=== PATIENT | female | born 1970 | race Caucasian/White ===

== ENCOUNTER 2019-07-24 10:59 | Emergency (ER) | payer OTHER ==
[~2019-07-24] VITALS: Ht 165.1 cm; Wt 70.3 kg
[2019-07-24 11:00] VITALS: BP 114/82
[2019-07-24 11:21] VITALS: BP 112/80
== END 2019-07-24 11:21 ==
LOC: MED 10:59
DX: M79.606 Pain in leg, unspecified (principal); M79.10 Myalgia, unspecified site; R20.0 Anesthesia of skin
CPT/HCPCS: 99283

== ENCOUNTER 2019-10-14 19:26 | Emergency (ER) | payer OTHER, MEDICAID ==
[~2019-10-14] VITALS: Ht 162.6 cm; Wt 65.8 kg
[2019-10-14 19:45] VITALS: BP 113/71
--- NOTE | 2019-10-14 19:48 | NUR ---
TO LOBBY A/W BED AMBULATORY
--- NOTE | 2019-10-14 22:02 | NUR ---
PT AMBULATED TO BED 10
--- NOTE | 2019-10-14 22:18 | NUR ---
DR. DALLIN PIERCE AT BED.
--- NOTE | 2019-10-14 22:30 | NUR ---
49 YO F BIB SELF PRESENTS TO ED C/O 07/23 CHEST CONGESTION, NASAL CONGESTION AND HACKING COUGH WITH BRIGHT GREEN PHLEGHM X 4 DAYS. PT REPORTS SOB DUE TO UNABLE TO BREATHE THROUGH NOSE. NASAL CONGESTION HEARD. LUNGS CTA. SPO2 98% ON RA. SKIN NORMAL FOR ETHNICITY, WARM, DRY. BREATHING EVEN, SLIGHTLY LABORED. PMH-- DENIES RX-- DENIES
[2019-10-14] MEDS ORDERED: OSELTAMIVIR PHOSPHATE 75 MG CAP PO ONE (23:05)
[2019-10-14 23:08] LABS: BASOPHILS % (AUTO) 0.4 % (0.0-2.0); EOSINOPHILS % (AUTO) 0.3 % (0.0-4.0); HEMATOCRIT 36.1 % (36-48); HEMOGLOBIN 11.3 g/dL (12.0-16.0); LYMPHOCYTES # (AUTO) 1.6 K/uL (2.5-16.5); LYMPHOCYTES % (AUTO) 22.9 % (20.5-51.1); MEAN CORPUSCULAR HEMOGLOBIN 25 pg (27-31); MEAN CORPUSCULAR HGB CONC 31 g/dL (33-37); MEAN CORPUSCULAR VOLUME 80.9 fL (80-94); MONOCYTES % (AUTO) 14.3 % (1.7-9.3); NEUTROPHILS # (AUTO) 4.3 K/uL (1.8-7.7); NEUTROPHILS % (AUTO) 62.1 % (42.2-75.2); PLATELET COUNT (AUTO) 271 K/uL (140-450); RED BLOOD CELL COUNT(AUTO) 4.46 MIL/uL (4.20-5.40); RED CELL DISTRIBUTION WIDTH 16.5 % (11.6-13.7); WHITE BLOOD COUNT (AUTO) 6.9 K/uL (4.8-10.8)
[2019-10-14 23:18] VITALS: BP 122/76
--- NOTE | 2019-10-14 23:18 | NUR ---
Patient discharged with v/s stable. Written and verbal after care instructions given and explained. Patient alert, oriented and verbalized understanding of instructions. Ambulatory with steady gait. All questions addressed prior to discharge. ID band removed. Patient advised to follow up with PMD. Rx of Tamiflu given. Patient educated on indication of medication including possible reaction and side effects. Opportunity to ask questions provided and answered.
[2019-10-14 23:27] LABS: ALBUMIN 3.2 g/dL (3.4-5.0); ANION GAP 13.9 (8-16); CARBON DIOXIDE 27.7 mmol/L (21-32); CREATININE 0.6 mg/dL (0.6-1.3); POTASSIUM 3.6 mmol/L (3.5-5.1); TOTAL BILIRUBIN 0.2 mg/dL (0.0-1.0)
== END 2019-10-14 23:18 | disposition home or self-care (01) ==
LOC: MED 19:26
DX: J10.1 Influenza due to other identified influenza virus with other respiratory manifestations (principal)
CPT/HCPCS: 36415; 71046; 80053; 85025; 87804; 99284

== ENCOUNTER 2019-11-08 02:03 | Emergency (ER) | payer OTHER, MEDICAID ==
[~2019-11-08] VITALS: Ht 162.6 cm; Wt 67.1 kg
[2019-11-08 02:13] VITALS: BP 141/85
--- NOTE | 2019-11-08 05:03 | NUR ---
PT AMBULATED TO BED 03 WITH STEADY GAIT.
--- NOTE | 2019-11-08 05:18 | NUR ---
Dr. Clay examining patient.
[2019-11-08 05:54] VITALS: BP 141/85
--- NOTE | 2019-11-08 05:54 | NUR ---
PT SEEN AND ASSESSED BY DR GUAMAN. PT DISCHARGED WITH PAPERWORK. EDUCATED PT REGARDING MEDICATIONS AND D/C INSTRUCTIONS. PT VERBALIZED UNDERSTANDING. TOLD PT TO FOLLOW UP WITH PCP AND WHEN TO RETURN TO ED. PT AT STABLE CONDITION. ALL QUESTIONS ANSWERED.
[2019-11-08 06:50] LABS: APPEARANCE,URINE HAZY (CLEAR); BILIRUBIN,URINE NEGATIVE (NEGATIVE); BLOOD, URINE TRACE-I (NEGATIVE); COLOR,URINE YELLOW (YELLOW); LEUKOCYTE ESTERASE ,URINE 3+ (NEGATIVE); NITRITE, URINE POSITIVE (NEGATIVE); UGLUCOSE NEGATIVE (NEGATIVE)
[2019-11-08 06:59] LABS: WBC,URINE 20-60 /HPF (0-5)
[2019-11-08 07:01] LABS: RBC,URINE 11-20 (MOD) /HPF (0-5)
== END 2019-11-08 05:54 | disposition home or self-care (01) ==
LOC: MED 02:03
DX: N39.0 Urinary tract infection, site not specified (principal)
CPT/HCPCS: 81001; 81025; 87086; 87186; 99283

== ENCOUNTER 2019-11-20 01:32 | Emergency (ER) | payer OTHER, MEDICAID ==
[~2019-11-20] VITALS: Ht 162.6 cm; Wt 65.8 kg
[2019-11-20 01:35] VITALS: BP 119/84
[2019-11-20 03:20] VITALS: BP 119/84
--- NOTE | 2019-11-20 03:20 | NUR ---
Patient discharged with v/s stable seen and DC'd by Dr Bettencourt. Pt refused to sign DC paperwork. Written and verbal after care instructions given and explained. Patient alert, oriented and verbalized understanding of instructions. Ambulatory with steady gait. All questions addressed prior to discharge. ID band removed. Patient advised to follow up with PMD and when to return to ER. Rx of Naprosyn given. Patient educated on indication of medication including possible reaction and side effects. Opportunity to ask questions provided and answered.
== END 2019-11-20 03:20 | disposition home or self-care (01) ==
LOC: MED 01:32
DX: J02.9 Acute pharyngitis, unspecified (principal)
CPT/HCPCS: 99282

== ENCOUNTER 2019-12-14 02:12 | Emergency (ER) | payer OTHER, MEDICAID ==
[~2019-12-14] VITALS: Ht 162.6 cm; Wt 69.4 kg
[2019-12-14 02:16] VITALS: BP 111/40
--- NOTE | 2019-12-14 02:20 | NUR ---
PT AMBULATED TO BED #7
--- NOTE | 2019-12-14 02:25 | NUR ---
PT BIB SELF FOR C/O R LEG PAIN X 1 DAY. PT ALERT AND ORIENTED TO PERSON AND PLACE. PT NOTED WITH 2 SMALL ABCESS TO THE R ANTERIOR CALF. SKIN IS WARM TO TOUCH. PT ABLE TO AMBULATE WITH STEADY GAIT. PT HAS C/O 10/10 PAIN IN R LEG. AFEBRILE. RESPIRATIONS ARE EVEN AND UNLABORED. DENIES COUGH. DENIES N/V/D. BED LOCKED AND IN LOWEST POSITION. MEDHX: NONE ALLERGIES: NKA
[2019-12-14] MEDS ORDERED: ACETAMINOPHEN EXTRA STRENGTH 500 MG TAB PO ONE (02:50)
--- NOTE | 2019-12-14 03:00 | NUR ---
PT GIVEN TYLENOL EXTRA STRENGTH 1000MG PO FOR 10/10 LEG PAIN.
[2019-12-14 03:40] VITALS: BP 111/40
--- NOTE | 2019-12-14 03:40 | NUR ---
Patient discharged with v/s stable. Written and verbal after care instructions given and explained. Patient alert, oriented and verbalized understanding of instructions. Ambulatory with steady gait. All questions addressed prior to discharge. Patient advised to follow up with PMD. Rx of KEFLEX given. Patient educated on indication of medication including possible reaction and side effects. Opportunity to ask questions provided and answered. PT REFUSED TO SIGN D/C PAPERWORK AND LEFT WITHOUT D/C PAPERS.
--- NOTE | 2019-12-14 03:40 | NUR ---
PT REFUSED TO SIGN D/C PAPERWORK AND LEFT D/C PAPERWORK.
== END 2019-12-14 03:40 | disposition home or self-care (01) ==
LOC: MED 02:12
DX: L73.9 Follicular disorder, unspecified (principal)
CPT/HCPCS: 10061; 99283; 99284

== ENCOUNTER 2019-12-29 23:50 | Emergency (ER) | payer OTHER, MEDICAID ==
[~2019-12-29] VITALS: Ht 162.6 cm; Wt 69.9 kg
[2019-12-29 23:54] VITALS: BP 121/87
--- NOTE | 2019-12-29 23:58 | NUR ---
PT TAKEN TO BED 4
--- NOTE | 2019-12-30 | NUR ---
PT ASSESSMENT COMPLETE. PT SEATED UPRIGHT IN BED. SAFETY MEASURES IN PLACE. BEDRAIL X1 UP. WILL CONTINUE TO MONITOR,
--- NOTE | 2019-12-30 00:30 | NUR ---
Dr. Bettencourt examining patient.
[2019-12-30] MEDS ORDERED: LORazepam 1 MG TAB PO ONE (00:40)
--- NOTE | 2019-12-30 01:50 | NUR ---
PT SEEN WITH EYES CLOSED. VISIBLE CHEST RISE AND FALL NOTED. BEDRAIL X1 UP. WILL CONTINUE TO MONITOR.
[2019-12-30 02:10] VITALS: BP 139/66
== END 2019-12-30 02:15 | disposition home or self-care (01) ==
LOC: MED 23:50
DX: J02.9 Acute pharyngitis, unspecified (principal); F41.9 Anxiety disorder, unspecified; F15.90 Other stimulant use, unspecified, uncomplicated
CPT/HCPCS: 87081; 99282; 99283

== ENCOUNTER 2019-12-30 03:47 | Emergency (ER) | payer OTHER, MEDICAID ==
[~2019-12-30] VITALS: Ht 162.6 cm; Wt 62.6 kg
--- NOTE | 2019-12-30 03:50 | NUR ---
PATIENT SEEN AND ASSESSED BY DR. CASTRO.
[2019-12-30 03:53] VITALS: BP 100/86
--- NOTE | 2019-12-30 03:53 | NUR ---
Dr. Bettencourt examining patient.
[2019-12-30] MEDS ORDERED: ALUMINUM HYD/MAG/SIMETHICONE 30 ML UDC PO ONE (04:00)
--- NOTE | 2019-12-30 04:01 | NUR ---
PATIENT STATES SHE DOES NOT WANT TREATMENT AND LEFT THE HOSPITAL AT THIS TIME.
--- NOTE | 2019-12-30 04:02 | NUR ---
PATIENT REFUESED MEDICATION OR ASSESSMENT. Addendum: 12/30/19 at 0404 by NITIN PATIENT LEFT WITHOUT BEING SEEN. REFUESED ASSESSMENT OR MEDICATION ORDERED. NIKIA AWARE. NO NURSING CARE RENDERED.
== END 2019-12-30 04:01 | disposition left against medical advice (07) ==
LOC: MED 03:47
DX: R11.0 Nausea (principal); Z53.21 Procedure and treatment not carried out due to patient leaving prior to being seen by health care provider

== ENCOUNTER 2020-01-07 00:01 | Emergency (ER) | payer OTHER, MEDICAID ==
[~2020-01-07] VITALS: Ht 162.6 cm; Wt 68.0 kg
[2020-01-07 00:08] VITALS: BP 125/86
[2020-01-07] MEDS ORDERED: PSEUDOEPHEDRINE 30 MG TAB PO ONE (00:25)
[2020-01-07] MEDS ORDERED: AZITHROMYCIN 250 MG TAB PO ONE (00:25)
[2020-01-07 00:49] VITALS: BP 125/86
== END 2020-01-07 00:49 | disposition home or self-care (01) ==
LOC: MED 00:01
DX: J06.9 Acute upper respiratory infection, unspecified (principal)
CPT/HCPCS: 99283

== ENCOUNTER 2020-02-08 03:10 | Emergency (ER) | payer OTHER, MEDICAID ==
[~2020-02-08] VITALS: Ht 162.6 cm; Wt 69.9 kg
[2020-02-08 03:16] VITALS: BP 126/89
--- NOTE | 2020-02-08 03:23 | NUR ---
PT AMBULATED TO BED 11
--- NOTE | 2020-02-08 03:39 | NUR ---
PT SEEN BY NIKIA PIEDRA. NO NURSING INTERVENTIONS ORDERED AT THIS TIME.
--- NOTE | 2020-02-08 03:42 | NUR ---
Patient discharged with v/s stable. Written and verbal after care instructions given and explained. Patient alert, oriented and verbalized understanding of instructions. Ambulatory with steady gait. All questions addressed prior to discharge. ID band removed. Patient advised to follow up with PMD. Rx of MOTRIN AND CORTICOSPORIN given. Patient educated on indication of medication including possible reaction and side effects. Opportunity to ask questions provided and answered.
[2020-02-08 03:43] VITALS: BP 126/89
== END 2020-02-08 03:43 | disposition home or self-care (01) ==
LOC: MED 03:10
DX: H92.02 Otalgia, left ear (principal); R03.0 Elevated blood-pressure reading, without diagnosis of hypertension
CPT/HCPCS: 99283

== ENCOUNTER 2020-03-11 17:50 | Emergency (ER) | payer OTHER, MEDICAID ==
[~2020-03-11] VITALS: Ht 162.6 cm; Wt 63.5 kg
[2020-03-11 17:54] VITALS: BP 124/69
--- NOTE | 2020-03-11 18:01 | NUR ---
PATIENT PRESENTS TO ED WITH SORE THROAT AND RIGHT EARACHE FOR 4 DAYS. DENIES N/V/D; SKIN IS PINK/WARM/DRY; AAOX4 WITH EVEN AND STEADY GAIT; PT DENIES ANY FEVER, CP, SOB, OR COUGH AT THIS TIME; PATIENT STATES PAIN OF 5/10 AT THIS TIME; VSS; PATIENT POSITIONED FOR COMFORT IN CHAIR A. ER MD MADE AWARE OF PT STATUS.
--- NOTE | 2020-03-11 18:09 | NUR ---
PT LEFT WITHOUT BEING SEEN.
== END 2020-03-11 18:09 | disposition left against medical advice (07) ==
LOC: MED 17:50
DX: J02.9 Acute pharyngitis, unspecified (principal); Z53.21 Procedure and treatment not carried out due to patient leaving prior to being seen by health care provider

== ENCOUNTER 2020-05-20 14:16 | Emergency (ER) | payer OTHER, MEDICAID ==
[~2020-05-20] VITALS: Ht 162.6 cm; Wt 61.2 kg
--- NOTE | 2020-05-20 14:16 | NUR ---
Patient BIBA BLS, transferred to bed 4. RN evaluating patient at bedside.
[2020-05-20 14:24] VITALS: BP 119/79
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
--- NOTE | 2020-05-20 15:36 | NUR ---
Dr. Bettencourt is evaluating the patient at bedside.
[2020-05-20] MEDS: NACL 0.9% 1,000 ML IV ONE (16:10)
[2020-05-20 16:17] VITALS: BP 110/68
--- NOTE | 2020-05-20 16:17 | NUR ---
Patient discharged with v/s stable. Written and verbal after care instructions given and explained. Patient verbalized understanding. Ambulatory with steady gait. All questions addressed prior to discharge. Advised to follow up with PMD.
== END 2020-05-20 16:17 | disposition home or self-care (01) ==
LOC: MED 14:16
DX: F10.129 Alcohol abuse with intoxication, unspecified (principal); F15.10 Other stimulant abuse, uncomplicated
CPT/HCPCS: 96360; 99283; J7030

== ENCOUNTER 2020-06-29 22:20 | Emergency (ER) | payer OTHER, MEDICAID ==
[~2020-06-29] VITALS: Ht 162.6 cm; Wt 59.0 kg
--- NOTE | 2020-06-29 22:25 | NUR ---
biba to lobby
[2020-06-29 22:26] VITALS: BP 146/89
--- NOTE | 2020-06-29 22:34 | NUR ---
see complete assessment.
--- NOTE | 2020-06-29 23:26 | NUR ---
to ED bed 07
--- NOTE | 2020-06-30 01:27 | NUR ---
PT SLEEPING, NO DISTRESS NOTED, RESPIRATIONS REGULAR, EVEN, AND UNLABORED.
--- NOTE | 2020-06-30 01:35 | NUR ---
ACCUCHECK 166 AND PT CRYING SAYING SHE HAS A HEADACHE 06/23, MD DUNLAP NOTIFIED
[2020-06-30] MEDS ORDERED: ACETAMINOPHEN 325 MG TAB PO ONE (01:40)
[2020-06-30] MEDS ORDERED: METOCLOPRAMIDE 10 MG/2 ML INJ VIAL IM ONE (01:40)
--- NOTE | 2020-06-30 02:34 | NUR ---
PT STATES HEADACHE IS BETTER. NO DISTRESS NOTED.
--- NOTE | 2020-06-30 04:02 | NUR ---
PT REMAINS SLEEPING, RESPIRATIONS REGULAR UNLABORED AND EVEN. NO SIGNS OF DISTRESS NOTED.
[2020-06-30 05:14] VITALS: BP 130/76
--- NOTE | 2020-06-30 05:17 | NUR ---
PT REFUSED TO SIGN PAPERWORK AND REFUSED TO ACCEPT DISCHARGE PAPERWORK. PT BECAME UPSET AND AGITATED UPON DISCHARGE.
== END 2020-06-30 05:14 | disposition home or self-care (01) ==
LOC: MED 22:20
DX: G44.209 Tension-type headache, unspecified, not intractable (principal)
CPT/HCPCS: 96372; 99283; J2765

== ENCOUNTER 2020-07-15 07:44 | Emergency (ER) | payer OTHER, MEDICAID ==
[~2020-07-15] VITALS: Ht 162.6 cm; Wt 65.8 kg
--- NOTE | 2020-07-15 07:44 | NUR ---
Patient BIBA BLS, transferred to bed 1. RN evaluating patient at bedside.
[2020-07-15 07:48] VITALS: BP 132/68
--- NOTE | 2020-07-15 07:50 | NUR ---
PT BIBA FROM [facility] DUE TO ABDOMINAL DISCOMFORT. PER EMS PT HOMELESS. PT PRESENTS A/OX4,VSS,EUPNIC,AMBULATORY. PER PT "IM HUNGRY" AND REQUESTING FOOD. PT NKA. NO HX. NO RX. NO NVD. PT AFIBRILE , AMBULATORY WITH STEADY GAIT ,PINK PALPEBRAL CONJUNCTIVA , ANICTERIC SCLERA, SCE , FLAT SOFT ABDOMEN.
--- NOTE | 2020-07-15 07:56 | NUR ---
GAVE BREAKFAST TRAY , PT COMFORTABLE IN BED SIDE RAIL UP X1 AND LOCK AT LOWEST POSITION.
--- NOTE | 2020-07-15 08:41 | NUR ---
DR CASTRO AT BEDSIDE EVALUATING PT.
[2020-07-15 09:31] VITALS: BP 130/65
== END 2020-07-15 09:30 | disposition home or self-care (01) ==
LOC: MED 07:44
DX: R10.9 Unspecified abdominal pain (principal); Z59.0 Homelessness
CPT/HCPCS: 99283

== ENCOUNTER 2020-09-08 06:40 | Emergency (ER) | payer OTHER, MEDICAID ==
[~2020-09-08] VITALS: Ht 162.6 cm; Wt 54.4 kg
[2020-09-08 06:45] VITALS: BP 137/79
--- NOTE | 2020-09-08 06:45 | NUR ---
PT CARLOS CARMEN. TAKEN TO BED 11
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
--- NOTE | 2020-09-08 07:05 | NUR ---
ermd at bedside for medical evaluation
--- NOTE | 2020-09-08 07:09 | NUR ---
REPORT GIVEN TO BLU HERNANDES. TRANSFER OF CARE AT THIS TIME.
--- NOTE | 2020-09-08 08:02 | NUR ---
Pt resting in bed, respirations even and unlabored, VSS on bedside monitor.
--- NOTE | 2020-09-08 10:00 | NUR ---
Pt requesting for Tylenol for her headache; Dr. Jones notified
[2020-09-08] MEDS ORDERED: ACETAMINOPHEN 325 MG TAB PO ONE (10:05)
--- NOTE | 2020-09-08 10:12 | NUR ---
Dr. Jones speaking w/ pt at bedside
[2020-09-08 10:44] VITALS: BP 128/72
--- NOTE | 2020-09-08 10:44 | NUR ---
Patient discharged with v/s stable. Written and verbal after care instructions given and explained. Patient verbalized understanding. Ambulatory with steady gait. All questions addressed prior to discharge. Advised to follow up with PMD. Pt given homeless discharge packet and signed homeless waiver. Pt was provided with meal tray here.
== END 2020-09-08 10:44 | disposition home or self-care (01) ==
LOC: MED 06:40
DX: R51.9 Headache, unspecified (principal); F15.10 Other stimulant abuse, uncomplicated; F10.99 Alcohol use, unspecified with unspecified alcohol-induced disorder
CPT/HCPCS: 99282

== ENCOUNTER 2020-10-12 22:11 | Emergency (ER) | payer OTHER, MEDICAID ==
[~2020-10-12] VITALS: Ht 162.6 cm; Wt 54.4 kg
--- NOTE | 2020-10-12 22:11 | NUR ---
PT KUSUM TAO, PREBOOK. TAKEN TO CHAIR
[2020-10-12 22:20] VITALS: BP 116/71
--- NOTE | 2020-10-12 22:41 | NUR ---
PATIENT BIB [employer]. PATIENT EXAMINED BY . PATIENT MEDICALLY CLEARED AND RELEASED IN CUSTODY IN STABLE CONDITION. ORIGINAL PRE-BOOK FORM GIVEN TO OFFICER [place]UC[place], # [phone].
== END 2020-10-12 22:41 ==
LOC: MED 22:11
DX: M79.641 Pain in right hand (principal); M79.642 Pain in left hand
CPT/HCPCS: 99283